=== PATIENT | female | born 1990 | race Caucasian/White ===

== ENCOUNTER 2020-11-14 10:50 | Inpatient (IN) | payer OTHER ==
[2020-11-14] MEDS ORDERED: ELECTROLYTE-148 SOLN 500 ML IV ONE ×2 (11:00→14:34)
[2020-11-14] MEDS: ELECTROLYTE-148 SOLN 1,000 ML IV SCH ×2 (11:30→15:24)
[2020-11-14 11:55] LABS: BASO % 0.2 % (0-2.0); EOS % 0.7 % (0-4.5); HEMATOCRIT 28.5 % (32.4-45.2); HEMOGLOBIN 9.2 GM/dL (10.7-15.3); MCH 26.7 pg (25.7-33.7); MCHC 32.4 g/dl (32.0-36.0); MEAN CELL VOLUME 82.3 fl (80-96); MEAN PLT VOLUME 9.3 fl (7.5-11.1); MONO % 5.7 % (3.8-10.2); NEUT % 76.4 % (42.8-82.8); PLATELET COUNT 333 K/MM3 (134-434); RBC 3.46 M/mm3 (3.60-5.2); RDW 15.8 % (11.6-15.6); WHITE BLOOD COUNT 9.5 K/mm3 (4.0-10.0)
[2020-11-14 12:03] LABS: INR 0.95 (0.83-1.09); PROTHROMBIN TIME (PATIENT) 11.5 SEC (9.7-13.0)
[2020-11-14 12:14] LABS: POTASSIUM 4.1 mmol/L (3.5-5.1)
[2020-11-14 12:17] LABS: CALCIUM 8.4 mg/dL (8.5-10.1)
[2020-11-14 12:18] LABS: BLOOD UREA NITROGEN 5.6 mg/dL (7-18)
[2020-11-14 12:21] LABS: CREATININE 0.4 mg/dL (0.55-1.3)
[2020-11-14 12:33] VITALS: BMI 34.3
[2020-11-14] MEDS ORDERED: ONDANSETRON 4 MG/2 ML VIAL IVPUSH PRN (13:07)
[2020-11-14] MEDS ORDERED: CITRIC ACID/SODIUM CITRATE 30 ML UNIT-DOSE CUP PO ONE ×2 (13:15→14:34)
[2020-11-14] MEDS ORDERED: morphine SULFATE/PF 0.5 MG/ML (2cc Syringe - QUVA) ONE (13:15)
[2020-11-14] MEDS ORDERED: OXYTOCIN 10 UNITS/ML VIAL ONE (13:43)
[2020-11-14] MEDS ORDERED: ONDANSETRON 4 MG/2 ML VIAL ONE (14:26)
[2020-11-14] MEDS ORDERED: PHENYLEPHRINE HCL 10 MG/1 ML SINGLE DOSE VIAL ONE (14:26)
[2020-11-14] MEDS ORDERED: ceFAZolin SODIUM 1 GM VIAL ONE (14:26)
[2020-11-14] MEDS ORDERED: METHYLERGONOVINE MALEATE 0.2 MG/1 ML AMP IM PRN (14:42)
[2020-11-14] MEDS ORDERED: SENNOSIDES/DOCUSATE COMBO (SENNA PLUS) TABLET (UD) PO PRN (14:42)
[2020-11-14] MEDS ORDERED: oxyCODONE HCL 5 MG TABLET PO PRN (14:42)
[2020-11-14] MEDS ORDERED: IBUPROFEN 800 MG/8 ML IJ IVPB PRN (14:42)
[2020-11-14] MEDS ORDERED: clonazePAM 0.5 MG TABLET PO PRN (14:51)
[2020-11-14] MEDS ORDERED: OXYTOCIN 20 UNITS in 0.9% NS 20 UNIT/1,000 ML INFUS.BAG IV ONE (15:18)
[2020-11-14] MEDS: OXYTOCIN 20 UNITS in 0.9% NS 20 UNIT/1,000 ML INFUS.BAG IV SCH (15:21)
[2020-11-14] MEDS: ACETAMINOPHEN 325 MG TABLET (FP) PO PRN (21:41)
[2020-11-14] MEDS: IBUPROFEN 600 MG TABLET (FP) PO PRN (21:41)
[2020-11-14] MEDS: PARoxetine HCL 10 MG TABLET PO SCH (22:00)
[2020-11-14] MEDS ORDERED: PARoxetine HCL 30 MG TABLET PO SCH (22:00)
[2020-11-15] MEDS: IBUPROFEN 600 MG TABLET (FP) PO PRN ×3 (04:00→18:33)
[2020-11-15] MEDS: SIMETHICONE 80 MG TAB.CHEW (FP) PO PRN ×3 (04:00→21:42)
[2020-11-15] MEDS: ACETAMINOPHEN 325 MG TABLET (FP) PO PRN ×4 (04:07→21:42)
[2020-11-15 07:26] LABS: BASO % 0.2 % (0-2.0); EOS % 0.7 % (0-4.5); HEMATOCRIT 26.8 % (32.4-45.2); HEMOGLOBIN 8.7 GM/dL (10.7-15.3); LYMPH % 21.1 % (8-40); MCH 26.7 pg (25.7-33.7); MCHC 32.4 g/dl (32.0-36.0); MEAN CELL VOLUME 82.3 fl (80-96); MEAN PLT VOLUME 9.1 fl (7.5-11.1); MONO % 5.7 % (3.8-10.2); NEUT % 72.3 % (42.8-82.8); PLATELET COUNT 284 K/MM3 (134-434); RBC 3.26 M/mm3 (3.60-5.2); RDW 16.2 % (11.6-15.6); WHITE BLOOD COUNT 11.1 K/mm3 (4.0-10.0)
[2020-11-15] MEDS: PARoxetine HCL 10 MG TABLET PO SCH ×2 (09:52→21:36)
[2020-11-15] MEDS ORDERED: BISACODYL 10 MG SUPP.RECT RC PRN (14:42)
[2020-11-15] MEDS: OXYTOCIN 20 UNITS in 0.9% NS 20 UNIT/1,000 ML INFUS.BAG IV SCH (20:49)
[2020-11-15] MEDS: ELECTROLYTE-148 SOLN 1,000 ML IV SCH ×2 (20:49→20:50)
[2020-11-15] MEDS: oxyCODONE HCL 5 MG TABLET PO PRN (21:43)
[2020-11-15 23:12] VITALS: TEMP 98.1
[2020-11-16] MEDS: ACETAMINOPHEN 325 MG TABLET (FP) PO PRN ×3 (01:50→10:16)
[2020-11-16] MEDS: oxyCODONE HCL 5 MG TABLET PO PRN ×2 (01:51→05:53)
[2020-11-16] MEDS: IBUPROFEN 600 MG TABLET (FP) PO PRN ×3 (01:51→10:15)
[2020-11-16] MEDS: SIMETHICONE 80 MG TAB.CHEW (FP) PO PRN ×3 (01:51→10:16)
[2020-11-16] MEDS: PARoxetine HCL 10 MG TABLET PO SCH (09:04)
[2020-11-16 10:11] VITALS: BP 110/65; PULSE 90
== END 2020-11-16 11:45 | disposition home or self-care (01) | DRG 787 ==
LOC: JLDR 10:50 → J3W 16:32
PROVIDERS: ADMIT Obstetrics & Gynecology; ATTEND Obstetrics & Gynecology
PROC: 10D00Z1 Extraction of Products of Conception, Low, Open Approach (ICD-10-PCS; principal; 2020-11-14)
DX: O34.211 Maternal care for low transverse scar from previous cesarean delivery (principal); O44.43 Low lying placenta NOS or without hemorrhage, third trimester; O99.344 Other mental disorders complicating childbirth; F41.9 Anxiety disorder, unspecified; O69.81X0 Labor and delivery complicated by cord around neck, without compression, not applicable or unspecified; Z3A.38 38 weeks gestation of pregnancy; Z37.0 Single live birth
CPT/HCPCS: 36415; 80048; 85025; 85610; 85730; 86780; 86850; 86870; 86900; 86901; 86902; 88307-TC